=== PATIENT | male | born 1980 | race Caucasian/White ===

== ENCOUNTER 2016-11-21 15:16 | Emergency (ER) | payer SELFPAY ==
[~2016-11-21] VITALS: Ht 182.9 cm; Wt 67.0 kg
[2016-11-21 15:23] VITALS: BP 126/77
== END 2016-11-21 16:10 | disposition home or self-care (01) ==
LOC: ED 15:50
DX: B34.9 Viral infection, unspecified (principal); F17.210 Nicotine dependence, cigarettes, uncomplicated
CPT/HCPCS: 99282

== ENCOUNTER 2020-07-21 10:38 | Emergency (ER) | payer MEDICAID, OTHER ==
[~2020-07-21] VITALS: Ht 182.9 cm; Wt 68.9 kg
[2020-07-21 10:39] VITALS: BP 110/69
--- NOTE | 2020-07-21 11:36 | NUR ---
Patty eller in [facility] - 07/21/20 at 1136 by PABLO Patient given discharge instructions and rX they have confirmed that they understand the instructions. Patient ambulatory with steady gait.
--- NOTE | 2020-07-21 11:36 | NUR ---
Patient given discharge instructions and Rx, they have confirmed that they understand the instructions. Patient ambulatory with steady gait.
== END 2020-07-21 11:44 | disposition home or self-care (01) ==
LOC: ED 11:02
DX: J34.0 Abscess, furuncle and carbuncle of nose (principal); L03.211 Cellulitis of face
CPT/HCPCS: 99283

== ENCOUNTER 2020-08-12 11:31 | Emergency (ER) | payer MEDICAID ==
[~2020-08-12] VITALS: Ht 180.3 cm; Wt 70.1 kg
--- NOTE | 2020-08-12 11:59 | NUR ---
PT STATES HE WAS SICK YESTERDAY WITH FOOD POISONING, FEELS BETTER TODAY BUT NEEDS NOTE TO GO BACK TO WORK.
== END 2020-08-12 12:26 | disposition home or self-care (01) ==
LOC: ED 12:07
DX: B34.9 Viral infection, unspecified (principal); Z20.822 Contact with and (suspected) exposure to COVID-19; R11.2 Nausea with vomiting, unspecified; R19.7 Diarrhea, unspecified
CPT/HCPCS: 87635; 99283

== ENCOUNTER 2020-10-05 08:48 | Emergency (ER) | payer MEDICAID ==
[~2020-10-05] VITALS: Ht 182.9 cm; Wt 64.6 kg
[2020-10-05 08:51] VITALS: BP 128/76
--- NOTE | 2020-10-05 09:20 | NUR ---
TO [facility] FROM [facility]OB[facility]
--- NOTE | 2020-10-05 09:23 | NUR ---
BREAK RN: THIS IS A 40 YEAR OLD MALE WHO HAS RED LESIONS ALL OVER FACE, C/O OF DRAINAGE AND ITCHING.
--- NOTE | 2020-10-05 09:52 | NUR ---
DC INSTRUCTIONS REVIEWED
== END 2020-10-05 09:54 | disposition home or self-care (01) ==
LOC: ED 09:15
DX: L01.01 Non-bullous impetigo (principal); L03.211 Cellulitis of face; L03.213 Periorbital cellulitis
CPT/HCPCS: 99283

== ENCOUNTER 2020-11-19 05:43 | Emergency (ER) | payer MEDICAID ==
[~2020-11-19] VITALS: Ht 182.9 cm; Wt 63.8 kg
[2020-11-19 05:45] VITALS: BP 106/70
[2020-11-19] MEDS ORDERED: AMOXICILLIN 500 MG CAPSULE PO ONE (06:00)
[2020-11-19] MEDS ORDERED: KETOROLAC 30 MG/1 ML IM ONE (06:00)
[2020-11-19] MEDS ORDERED: AMOXICILLIN 500 MG CAPSULE ONE (06:01)
[2020-11-19] MEDS ORDERED: KETOROLAC 30 MG/1 ML ONE (06:01)
--- NOTE | 2020-11-19 06:20 | NUR ---
Patient given discharge instructions and they have confirmed that they understand the instructions. Patient ambulatory with steady gait.
== END 2020-11-19 06:22 | disposition home or self-care (01) ==
LOC: ED 06:17
DX: K04.7 Periapical abscess without sinus (principal); K02.9 Dental caries, unspecified
CPT/HCPCS: 96372; 99283; J1885

== ENCOUNTER 2021-02-08 09:13 | Emergency (ER) | payer MEDICAID ==
[~2021-02-08] VITALS: Ht 182.9 cm; Wt 58.7 kg
--- NOTE | 2021-02-08 09:53 | NUR ---
PT CAME IN [place] X 2 DAYS. PT REPORTS HE ISNT ABLE TO HOLD FOOD DOWN BUT HAS BEEN TRYING TO DRINK SMALL AMOUNTS OF LIQUIDS TO STAY HYDRATED. PT RESTING IN [facility]. BLANKET PROVIDED
[2021-02-08] MEDS ORDERED: SODIUM CHLORIDE 0.9% 1,000ML IVBOLUS ONE (11:00)
[2021-02-08] MEDS ORDERED: SODIUM CHLORIDE FLUSH 10ML SYR IVF ONE (11:00)
[2021-02-08] MEDS ORDERED: ONDANSETRON 2MG/ML, 2ML IVPush ONE (11:00)
[2021-02-08] MEDS ORDERED: ONDANSETRON 2MG/ML, 2ML ONE (11:05)
--- NOTE | 2021-02-08 11:15 | NUR ---
PT STATES HE ISNT VERY NASUEOUS AT THIS TIME. AND DOES NOT WANT ZOFRAN
[2021-02-08 11:26] LABS: BASOPHILS % (AUTO) 1 % (0-1); EOSINOPHILS % (AUTO) 3 % (1-7); LYMPHOCYTES % (AUTO) 28 % (22-44); MEAN CORPUSCULAR HEMOGLOBIN 31.1 pg (27.5-34.5); MEAN CORPUSCULAR HGB CONC 34.8 g/dL (33.2-36.2); MEAN PLATELET VOLUME 8.1 fL (7.4-10.4); MONOCYTES % (AUTO) 12 % (2-9); NEUTROPHILS % (AUTO) 56 % (42-75); PLATELET COUNT 224 x10^3/uL (130-400); RED BLOOD COUNT 4.56 x10^6/uL (4.38-5.82); RED CELL DISTRIBUTION WIDTH 12.7 % (9.4-14.8)
[2021-02-08 11:38] LABS: ALBUMIN 3.8 g/dL (3.4-5.0); CALCIUM 9.3 mg/dL (8.5-10.1); CHLORIDE 103 mmol/L (98-107)
[2021-02-08 11:42] LABS: ALANINE AMINOTRANSFERASE 17 U/L (12-78); ALKALINE PHOSPHATASE 56 U/L (45-117); BILIRUBIN,TOTAL 0.3 mg/dL (0.2-1.0); CREATININE 0.88 mg/dL (0.7-1.3); TOTAL PROTEIN 7.3 g/dL (6.4-8.2)
[2021-02-08 11:46] VITALS: BP 106/64
[2021-02-08 11:46] LABS: ANION GAP 2 mmol/L (5-15)
[2021-02-08] MEDS ORDERED: OMNIPAQUE 350 MG/ML, 100ML BOTTLE ONE (12:10)
[2021-02-08 13:15] LABS: MICROSCOPIC AUTO
== END 2021-02-08 13:46 | disposition left against medical advice (07) ==
LOC: ED 11:02
DX: R05 Cough (principal); R11.2 Nausea with vomiting, unspecified; R19.7 Diarrhea, unspecified
CPT/HCPCS: 36415; 74177; 80053; 81001; 83605; 83690; 85025; 87806; 96360; 99285; J7030; Q9967; G0475